=== PATIENT | male | born 1985 | race Caucasian/White ===

== ENCOUNTER 2018-08-27 13:52 | Inpatient (IN) | payer OTHER ==
[2018-08-27 14:50] LABS: ADD MAN DIFF? NO
[2018-08-27 14:53] LABS: BASOPHIL # 0.1 10^3/ul (0.0-0.1); BASOPHILS % 0.4 % (0.0-2.0); EOSINOPHILS % 0.3 % (0.0-7.0); HEMATOCRIT 44.9 % (42.0-52.0); HEMOGLOBIN 15.8 g/dl (14.0-18.0); LYMPHOCYTES # 1.3 10^3/ul (0.8-2.9); LYMPHOCYTES % 8.8 % (15.0-51.0); MEAN CORPUSCULAR HEMOGLOBIN 30.2 pg (29.0-33.0); MEAN CORPUSCULAR HGB CONC 35.2 g/dl (32.0-37.0); MEAN CORPUSCULAR VOLUME 85.7 fl (82.0-101.0); MEAN PLATELET VOLUME 10.3 fl (7.4-10.4); MONOCYTE # 0.9 10^3/ul (0.3-0.9); NEUTROPHIL # 12.6 10^3/ul (1.6-7.5); NEUTROPHILS % 84.1 % (39.0-77.0); PLATELET COUNT 262 10^3/UL (140-415); RED BLOOD COUNT 5.24 10^6/ul (4.70-6.10); RED CELL DISTRIBUTION WIDTH 12.3 % (11.5-14.5)
[2018-08-27] MEDS: morphine 4 MG/ML VIAL IV (14:59)
[2018-08-27] MEDS: KETOROLAC 30 MG INJ IV (15:00)
[2018-08-27] MEDS: ONDANSETRON 4 MG INJ IV (15:01)
[2018-08-27] MEDS: SOD CHLORIDE 0.9% 1,000 ML IV (15:01)
[2018-08-27 15:03] LABS: ADD UMIC NO; UR ASCORBIC ACID NEGATIVE (NEGATIVE); UR BILIRUBIN (Dip) NEGATIVE (NEGATIVE); UR BLOOD (Dip) NEGATIVE (NEGATIVE); UR CLARITY CLEAR (CLEAR); UR COLOR YELLOW (YELLOW); UR GLUCOSE (Dip) NEGATIVE (NEGATIVE); UR KETONES (Dip) TRACE mg/dL (NEGATIVE); UR LEUKOCYTE ESTERASE (Dip) NEGATIVE Leu/ul (NEGATIVE); UR NITRITE (Dip) NEGATIVE (NEGATIVE); UR SPECIFIC GRAVITY (Dip) 1.028 (1.003-1.030); UR TOTAL PROTEIN (Dip) NEGATIVE (NEGATIVE); UR UROBILINOGEN (Dip) NEGATIVE (NEGATIVE)
[2018-08-27 15:19] LABS: ALANINE AMINOTRANSFERASE 80 IU/L (13-69); ALBUMIN 4.2 g/dl (3.3-4.9); ALBUMIN/GLOBULIN RATIO 0.97; ALKALINE PHOSPHATASE 79 IU/L (42-121); ANION GAP 15 (8-16); ASPARTATE AMINO TRANSFERASE 43 IU/L (15-46); BLOOD UREA NITROGEN 18 mg/dl (7-20); CARBON DIOXIDE 31 mmol/L (21-31); CHLORIDE 99 mmol/L (97-110); CREATININE 1.05 mg/dl (0.61-1.24); GLUCOSE 108 mg/dl (70-220); LIPASE 31 U/L (23-300); POTASSIUM 4.2 mmol/L (3.5-5.1); SODIUM 141 mmol/L (135-144); TOTAL PROTEIN 8.5 g/dl (6.1-8.1)
[2018-08-27] MEDS: PIPER-TAZO 3.375 GM IV (PMX) 100 ML IVPB (16:20)
[2018-08-27] MEDS ORDERED: NACL 0.9% 3 ML SYG IV (17:00)
[2018-08-27] MEDS ORDERED: ONDANSETRON 4 MG INJ IV (17:00)
[2018-08-27] MEDS: DEXTROSE 5%-0.45% NACL 1,000 ML IV (17:36)
[2018-08-27 19:41] LABS: INR 0.96; PROTIME 12.9 Sec (11.9-14.9)
[2018-08-27 19:42] LABS: LACTIC ACID 0.7 mmol/L (0.5-2.0)
[2018-08-27] MEDS: FAMOTIDINE 20 MG INJ IV (20:05)
[2018-08-27] MEDS: morphine 2 MG INJ IV (21:12)
[2018-08-27] MEDS: BUPIVACAINE 0.25% (MPF) 30 ML INJ (22:06)
[2018-08-27] MEDS: LIDOCAINE 1%/EPI 30 ML INJ (22:07)
[2018-08-27] MEDS ORDERED: MIDAZOLAM 1 MG/ML 2 ML INJ (22:48)
[2018-08-27] MEDS ORDERED: FENTAnyl 50 MCG/ML VIAL (22:48)
[2018-08-27] MEDS ORDERED: PROPOFOL 20 ML (22:48)
[2018-08-27] MEDS ORDERED: ROCURONIUM 50 MG INJ (22:48)
[2018-08-27] MEDS ORDERED: LIDOCAINE 1% (MDV) 20 ML INJ (22:49)
[2018-08-27] MEDS ORDERED: ROPIVACAINE 0.5 % 30 ML VIAL (22:52)
[2018-08-27] MEDS ORDERED: HYDROmorphONE 1 MG/5 ML IV SYRINGE IV (23:00)
[2018-08-27] MEDS ORDERED: DEXAMETHASONE 4 MG/ML 1 ML INJ (23:18)
[2018-08-27] MEDS ORDERED: KETOROLAC 30 MG INJ (23:18)
[2018-08-27] MEDS ORDERED: ONDANSETRON 4 MG INJ (23:18)
[2018-08-27] MEDS ORDERED: SUGAMMADEX SODIUM 200 MG/2 ML VIAL IV (23:48)
[2018-08-28] MEDS: HYDROmorphONE 1 MG/5 ML IV SYRINGE IV (00:57)
[2018-08-28] MEDS: DEXTROSE 5%-0.45% NACL 1,000 ML IV (01:58)
[2018-08-28 05:38] LABS: ADD MAN DIFF? NO
[2018-08-28] MEDS: PIPER-TAZO 3.375 GM IV (PMX) 100 ML IVPB ×5 (05:40→23:50)
[2018-08-28 05:51] LABS: WHITE BLOOD COUNT 11.9 10^3/ul (4.8-10.8)
[2018-08-28 05:51] LABS: BASOPHILS % 0.3 % (0.0-2.0); EOSINOPHILS % 0.1 % (0.0-7.0); HEMATOCRIT 36.6 % (42.0-52.0); HEMOGLOBIN 12.9 g/dl (14.0-18.0); LYMPHOCYTES # 0.8 10^3/ul (0.8-2.9); LYMPHOCYTES % 6.9 % (15.0-51.0); MEAN CORPUSCULAR HEMOGLOBIN 30.5 pg (29.0-33.0); MEAN CORPUSCULAR HGB CONC 35.2 g/dl (32.0-37.0); MEAN CORPUSCULAR VOLUME 86.5 fl (82.0-101.0); MEAN PLATELET VOLUME 10.7 fl (7.4-10.4); MONOCYTE # 0.3 10^3/ul (0.3-0.9); MONOCYTES % 2.6 % (0.0-11.0); NEUTROPHIL # 10.7 10^3/ul (1.6-7.5); NEUTROPHILS % 89.8 % (39.0-77.0); PLATELET COUNT 200 10^3/UL (140-415); RED BLOOD COUNT 4.23 10^6/ul (4.70-6.10); RED CELL DISTRIBUTION WIDTH 12.4 % (11.5-14.5)
[2018-08-28 06:24] LABS: ALANINE AMINOTRANSFERASE 49 IU/L (13-69); ALBUMIN 3.5 g/dl (3.3-4.9); ALKALINE PHOSPHATASE 55 IU/L (42-121); ANION GAP 11 (8-16); ASPARTATE AMINO TRANSFERASE 27 IU/L (15-46); BILIRUBIN,INDIRECT 0.8 mg/dl (0-1.1); BILIRUBIN,TOTAL 0.8 mg/dl (0.2-1.3); BLOOD UREA NITROGEN 12 mg/dl (7-20); CALCIUM 8.6 mg/dl (8.4-10.2); CARBON DIOXIDE 27 mmol/L (21-31); CHLORIDE 108 mmol/L (97-110); CREATININE 0.98 mg/dl (0.61-1.24); GLUCOSE 122 mg/dl (70-220); POTASSIUM 4.5 mmol/L (3.5-5.1); SODIUM 141 mmol/L (135-144); TOTAL PROTEIN 6.4 g/dl (6.1-8.1)
[2018-08-28] MEDS: FAMOTIDINE 20 MG INJ IV (08:25)
[2018-08-28] MEDS: HYDROCODONE/APAP (5/325) TAB PO ×2 (08:55→15:29)
[2018-08-28] MEDS: morphine 2 MG INJ IV (14:23)
[2018-08-28] MEDS ORDERED: oxyCODONE 5 MG TAB PO (17:30)
[2018-08-28] MEDS: HYDROmorphONE 0.5 MG/0.5 ML SYG IV ×3 (17:59→23:52)
[2018-08-29] MEDS: HYDROmorphONE 0.5 MG/0.5 ML SYG IV ×3 (04:58→11:31)
[2018-08-29] MEDS: PIPER-TAZO 3.375 GM IV (PMX) 100 ML IVPB ×4 (05:34→23:53)
[2018-08-29 06:07] LABS: ADD MAN DIFF? NO
[2018-08-29 06:13] LABS: BASOPHIL # 0.1 10^3/ul (0.0-0.1); BASOPHILS % 0.5 % (0.0-2.0); EOSINOPHILS # 0.1 10^3/ul (0.0-0.5); EOSINOPHILS % 0.9 % (0.0-7.0); HEMATOCRIT 35.5 % (42.0-52.0); HEMOGLOBIN 12.2 g/dl (14.0-18.0); LYMPHOCYTES # 2.6 10^3/ul (0.8-2.9); MEAN CORPUSCULAR HEMOGLOBIN 30.5 pg (29.0-33.0); MEAN CORPUSCULAR HGB CONC 34.4 g/dl (32.0-37.0); MEAN CORPUSCULAR VOLUME 88.8 fl (82.0-101.0); MEAN PLATELET VOLUME 10.7 fl (7.4-10.4); MONOCYTE # 0.7 10^3/ul (0.3-0.9); MONOCYTES % 7.5 % (0.0-11.0); NEUTROPHIL # 6.4 10^3/ul (1.6-7.5); NEUTROPHILS % 64.8 % (39.0-77.0); PLATELET COUNT 189 10^3/UL (140-415); RED CELL DISTRIBUTION WIDTH 12.5 % (11.5-14.5)
[2018-08-29 06:13] LABS: WHITE BLOOD COUNT 9.9 10^3/ul (4.8-10.8)
[2018-08-29 06:38] LABS: ANION GAP 9 (8-16); BLOOD UREA NITROGEN 14 mg/dl (7-20); CALCIUM 8.5 mg/dl (8.4-10.2); CARBON DIOXIDE 31 mmol/L (21-31); CHLORIDE 105 mmol/L (97-110); GLUCOSE 93 mg/dl (70-220); MAGNESIUM 2.1 mg/dl (1.7-2.5); PHOSPHORUS 3.9 mg/dl (2.5-4.9); POTASSIUM 3.8 mmol/L (3.5-5.1); SODIUM 141 mmol/L (135-144)
[2018-08-29] MEDS ORDERED: HYDROmorphONE 0.5 MG/0.5 ML SYG IV (12:00)
[2018-08-29] MEDS: OXYCODONE/ACETAMINOPHEN (10/325) TAB PO (14:43)
[2018-08-29] MEDS ORDERED: HYDROmorphONE 2 MG TAB PO (15:30)
[2018-08-29] MEDS: SENNA TAB PO (21:00)
[2018-08-29] MEDS: ACETAMINOPHEN 325 MG TAB PO (23:56)
[2018-08-30] MEDS: OXYCODONE/ACETAMINOPHEN (10/325) TAB PO (01:47)
[2018-08-30 05:13] LABS: WHITE BLOOD COUNT 7.8 10^3/ul (4.8-10.8)
[2018-08-30 05:13] LABS: ADD MAN DIFF? NO
[2018-08-30 05:14] LABS: BASOPHILS % 0.5 % (0.0-2.0); EOSINOPHILS # 0.1 10^3/ul (0.0-0.5); EOSINOPHILS % 1.7 % (0.0-7.0); HEMATOCRIT 37.7 % (42.0-52.0); LYMPHOCYTES # 2.5 10^3/ul (0.8-2.9); MEAN CORPUSCULAR HEMOGLOBIN 30.2 pg (29.0-33.0); MEAN CORPUSCULAR HGB CONC 34.5 g/dl (32.0-37.0); MEAN CORPUSCULAR VOLUME 87.7 fl (82.0-101.0); MEAN PLATELET VOLUME 10.2 fl (7.4-10.4); MONOCYTE # 0.6 10^3/ul (0.3-0.9); MONOCYTES % 7.6 % (0.0-11.0); NEUTROPHIL # 4.5 10^3/ul (1.6-7.5); NEUTROPHILS % 57.9 % (39.0-77.0); PLATELET COUNT 214 10^3/UL (140-415); RED CELL DISTRIBUTION WIDTH 12.5 % (11.5-14.5)
[2018-08-30] MEDS: CIPROFLOXACIN 500 MG TAB PO ×2 (05:32→17:32)
[2018-08-30] MEDS: metroNIDAZOLE 500 MG TAB PO ×3 (05:32→21:50)
[2018-08-30 05:51] LABS: ANION GAP 11 (8-16); BLOOD UREA NITROGEN 14 mg/dl (7-20); CALCIUM 8.9 mg/dl (8.4-10.2); CARBON DIOXIDE 31 mmol/L (21-31); CHLORIDE 102 mmol/L (97-110); CREATININE 1.06 mg/dl (0.61-1.24); GLUCOSE 90 mg/dl (70-220); PHOSPHORUS 4.3 mg/dl (2.5-4.9); POTASSIUM 4.1 mmol/L (3.5-5.1); SODIUM 140 mmol/L (135-144)
[2018-08-30] MEDS: SENNA TAB PO ×3 (08:30→20:55)
[2018-08-30] MEDS: ACETAMINOPHEN 325 MG TAB PO (11:10)
[2018-08-30] MEDS: MAGNESIUM HYDROXIDE 30ML CUP PO (11:11)
[2018-08-30] MEDS: CYCLOBENZAPRINE 10 MG TAB PO (13:31)
[2018-08-30] MEDS: ACET/BUTAL/CAFF TAB PO (13:32)
[2018-08-30] MEDS ORDERED: HYDROCODONE/APAP (5/325) TAB PO (14:00)
[2018-08-31 05:39] LABS: ADD MAN DIFF? NO
[2018-08-31 05:40] LABS: BASOPHIL # 0.1 10^3/ul (0.0-0.1); BASOPHILS % 0.8 % (0.0-2.0); EOSINOPHILS # 0.2 10^3/ul (0.0-0.5); EOSINOPHILS % 2.3 % (0.0-7.0); HEMATOCRIT 39.6 % (42.0-52.0); LYMPHOCYTES # 2.2 10^3/ul (0.8-2.9); LYMPHOCYTES % 27.4 % (15.0-51.0); MEAN CORPUSCULAR HEMOGLOBIN 30.4 pg (29.0-33.0); MEAN CORPUSCULAR HGB CONC 35.4 g/dl (32.0-37.0); MEAN CORPUSCULAR VOLUME 86.1 fl (82.0-101.0); MEAN PLATELET VOLUME 10.2 fl (7.4-10.4); MONOCYTE # 0.7 10^3/ul (0.3-0.9); MONOCYTES % 8.5 % (0.0-11.0); NEUTROPHIL # 4.9 10^3/ul (1.6-7.5); NEUTROPHILS % 60.7 % (39.0-77.0); PLATELET COUNT 231 10^3/UL (140-415); RED CELL DISTRIBUTION WIDTH 12.1 % (11.5-14.5)
[2018-08-31] MEDS: CIPROFLOXACIN 500 MG TAB PO (05:55)
[2018-08-31] MEDS: metroNIDAZOLE 500 MG TAB PO (05:55)
[2018-08-31 06:08] LABS: ANION GAP 12 (8-16); BLOOD UREA NITROGEN 15 mg/dl (7-20); CALCIUM 9.3 mg/dl (8.4-10.2); CARBON DIOXIDE 31 mmol/L (21-31); CHLORIDE 101 mmol/L (97-110); CREATININE 0.89 mg/dl (0.61-1.24); GLUCOSE 90 mg/dl (70-220); MAGNESIUM 2.2 mg/dl (1.7-2.5); PHOSPHORUS 3.9 mg/dl (2.5-4.9); POTASSIUM 4.2 mmol/L (3.5-5.1); SODIUM 140 mmol/L (135-144)
[2018-08-31] MEDS: SENNA TAB PO (08:14)
== END 2018-08-31 11:30 | disposition home or self-care (01) | DRG 853 ==
LOC: FTE 13:52 → PP2 16:31
PROC: 0DTJ4ZZ Resection of Appendix, Percutaneous Endoscopic Approach (ICD-10-PCS; principal; 2018-08-27 22:51)
PROC: 0WQF0ZZ Repair Abdominal Wall, Open Approach (ICD-10-PCS; 2018-08-27 22:51)
DX: A41.9 Sepsis, unspecified organism (principal); K35.2 Acute appendicitis with generalized peritonitis; K43.9 Ventral hernia without obstruction or gangrene; K40.90 Unilateral inguinal hernia, without obstruction or gangrene, not specified as recurrent; E66.3 Overweight; Z68.26 Body mass index [BMI] 26.0-26.9, adult; R33.9 Retention of urine, unspecified; R51 Headache
CPT/HCPCS: 36415; 71045; 74176; 80048; 80053; 81003; 83605; 83690; 83735; 84100; 85025; 85610; 87040; 88304; 93005; 96361; 96374; 96375; 99285-25